=== PATIENT | female | born 1995 | race African-American/Black ===

== ENCOUNTER 2017-05-16 11:53 | Emergency (ER) | payer OTHER | END 2017-05-16 13:55 | disposition home or self-care (01) | LOC: ERS 11:53 | DX: O99.512 Diseases of the respiratory system complicating pregnancy, second trimester (principal); J11.1 Influenza due to unidentified influenza virus with other respiratory manifestations; Z3A.21 21 weeks gestation of pregnancy | CPT/HCPCS: 99283 ==

== ENCOUNTER 2017-05-26 10:59 | Outpatient (CLI) | payer OTHER ==
--- NOTE | 2017-05-26 13:27 | ULT ---
ULTRASOUND OB COMPLETE STANDARD: HISTORY: Z34.90, normal . COMPARISON: None. FINDINGS: The cervix measures 9 cm. Placenta is posterior. Single viable intrauterine with average ultrasound age of 22 weeks 1 day and estimated date of delivery 09/28/17. This is concordant with the clinical age. Estimated weight is 1 pound, 1 ounce. The amniotic fluid index is 9.6 cm. The position is breech. The cervicothoracic lumbar spine, bladder, diaphragm, kidneys, cord insertion, posterior fossa, nose, and lips, cerebellum, and 3-vessel cord are all normal. Ovaries and fallopian tubes are not interrogated on this examination. Biparietal Diameter: 22 weeks 3 days, 5.42 cm. Head Circumference: 21 weeks 6 days, 19.74 cm. Abdominal Circumference: 22 weeks 0 days, 16.94 cm. Femur Length: 22 weeks 2 days, 3.84 cm. IMPRESSION: Single viable intrauterine with average ultrasound age 22 weeks 1 day, estimated date of de livery 09/28/17. The biometry and visualized anatomy are normal. POS: [facility]
== END 2017-05-26 11:00 | disposition home or self-care (01) ==
LOC: ULT 10:59
PROVIDERS: ATTEND Family Medicine
DX: Z34.92 Encounter for supervision of normal pregnancy, unspecified, second trimester (principal); Z3A.22 22 weeks gestation of pregnancy
CPT/HCPCS: 76805

== ENCOUNTER 2017-08-09 14:04 | Day surgery (SDC) | payer OTHER ==
[2017-08-09 14:46] VITALS: BMI 28.3
[2017-08-09 14:48] VITALS: BP 117/58; TEMP 98.7
--- NOTE | 2017-08-09 15:54 | SS ---
DATE OF EVALUATION: 08/09/2017 ATTENDING PHYSICIAN: Kevon Tolbert M.D. EVALUATING PHYSICIAN: Jagdish Flores M.D. CHIEF COMPLAINT: Lower abdominal discomfort. HISTORY OF PRESENT ILLNESS: Ms. Woody is a 22-year-old black G2, P1-0-0-1 with an estimated date of confinement of 09/27/2017, who is now at 33 weeks, who presents complaining of lower abdominal discomfort, pain extending into her legs and tingling in her toes, which she experienced at work today. She denies vaginal bleeding, ruptured membranes. Her care has been with Dr. Tolbert and has been reportedly uncomplicated. PAST OBSTETRICAL HISTORY: Includes a term vaginal delivery reportedly without complications. PAST MEDICAL HISTORY: Unremarkable. PAST SURGICAL HISTORY: None. CURRENT MEDICATIONS: vitamins. ALLERGIES: DEMEROL, which she states gives her hives. SOCIAL HISTORY: She denies tobacco, alcohol, or drug use. REVIEW OF SYSTEMS: Denies nausea, vomiting, fever, or chills. PHYSICAL EXAMINATION: VITAL SIGNS: Stable and she is afebrile. ABDOMEN: Soft, gravid and nontender. There is no guarding or rebound. PELVIC: On pelvic examination, her cervix is fingertip externally, closed internally, 50% effaced and posterior. heart tones are reassuring. There were no decelerations. Good beat, beat variability is seen. There are no regular contractions. There is a small amount of irritability. ASSESSMENT: 1. A 33-week intrauterine . 2. No evidence of labor. 3. Suspected round ligament pain. PLAN: At this time, we will allow the patient go home and she has been given labor precautions in detail. She will continue with modified bed rest at home and check in with Dr. Kevon Tolbert on Friday. She voiced understanding of her discharge instructions and was sent home in good condition. [facility]ITALSebasti[facility]
[2017-08-09] MEDS ORDERED: FLU VACC QS2017-18 36 mo. & older 0.5 ML SYRINGE IM ONE (16:30)
== END 2017-08-09 15:30 | disposition home health service (06) ==
LOC: L&D/OP 14:04
PROVIDERS: ATTEND Family Medicine
DX: O99.89 Other specified diseases and conditions complicating pregnancy, childbirth and the puerperium (principal); R10.30 Lower abdominal pain, unspecified; M79.605 Pain in left leg; M79.604 Pain in right leg; R20.2 Paresthesia of skin; Z3A.33 33 weeks gestation of pregnancy; Z79.899 Other long term (current) drug therapy; Z88.5 Allergy status to narcotic agent

== ENCOUNTER 2017-09-23 21:00 | Inpatient (IN) | payer OTHER ==
--- NOTE | 2017-09-23 19:22 | HP ---
HISTORY OF PRESENT ILLNESS: This is a 22-year-old female G3, P1-0-1-0 at 39 weeks gestation with EDC of 09/27/2017. She does have a history of one prior vaginal delivery, one elective . Her p renatal course has been uncomplicated. She has been having occasional contractions. She is being ad mitted for an elective Cytotec/Pitocin induction. PAST MEDICAL HISTORY: Unremarkable. ALLERGIES: None. PAST SURGICAL HISTORY: Include spontaneous vaginally x1, elective AB x1. FAMILY HISTORY: Unremarkable. SOCIAL HISTORY: She is single. She presently has one daughter with a different father of baby. She works at [employer]. She does not smoke. REVIEW OF SYSTEMS: As above. PHYSICAL EXAMINATION: VITAL SIGNS: Stable, afebrile. HEENT: Clear. HEART/LUNGS: Clear. ABDOMEN: Soft, gravid. EXTREMITIES: With no edema. LABORATORY: One-hour GCT normal. Hematocrit 33, GBS positive. Pap normal, RPR negative, hepatitis B negative, HIV negative, B minus blood type, rubella immune. ASSESSMENT: 1. A 39-week intrauterine . 2. One prior vaginal delivery. 3. GBS positive. PLAN: 1. Routine L&D orders. 2. Routine anesthesia evaluation. 3. GBS prophylaxis. 4. Cytotec/Pitocin induction.
[2017-09-23] MEDS ORDERED: NS w/ Oxytocin 10 units 500 ML IV SCH (21:16)
[2017-09-23] MEDS ORDERED: Zolpidem Tartrate 5 MG TAB PO PRN (21:16)
[2017-09-23] MEDS ORDERED: Misoprostol 200 MCG TAB PR PRN (21:16)
[2017-09-23] MEDS ORDERED: HYDROcodone/Acetaminophen 5/325 mg Tablet PO PRN (21:16)
[2017-09-23] MEDS ORDERED: Ibuprofen 800 MG TAB PO PRN (21:16)
[2017-09-23] MEDS ORDERED: Lidocaine 1% (PF) 30 ML VIAL SC PRN (21:16)
[2017-09-23] MEDS ORDERED: Acetaminophen 500 MG TAB PO PRN (21:16)
[2017-09-23] MEDS ORDERED: Promethazine HCl 25 MG/ML VIAL IM PRN (21:16)
[2017-09-23] MEDS ORDERED: Ondansetron HCl/PF 4 MG/2 ML Vial IVP PRN (21:16)
[2017-09-23] MEDS ORDERED: Penicillin G Potassium 5 MILL.UNITS in Sodium Chloride 0.9% 100 ML IVPB SCH (21:30)
[2017-09-23 21:50] VITALS: BMI 28.6
[2017-09-23] MEDS: Lactated Ringer's 1,000 ML IV SCH (22:20)
[2017-09-23 22:21] LABS: Hemoglobin 9.8 g/dL (12.0-16.0); Mean Corpuscular HGB CONC 33.2 g/dL (32.0-36.0); Mean Corpuscular Hemoglobin 27.2 pg (27.0-31.0); Mean Platelet Volume 7.1 fL (7.4-10.4); Platelet Count 262 thou/uL (130-400); RBC Distribution Width 12.5 % (11.5-14.5); Red Blood Cell (RBC) Count 3.59 mill/uL (4.20-5.40); White Blood Cell (WBC) Count 8.3 thou/uL (4.8-10.8)
[2017-09-23] MEDS: Misoprostol 100 MCG TAB VAG SCH (22:21)
[2017-09-23 22:59] LABS: Syphilis Antibody Nonreactive (Nonreactive); Syphilis Antibody Index 0.14 S/CO (<1.00 Non-Reactive)
[2017-09-23 23:37] LABS: HBSAg Index 0.23 S/CO (0-0.99); Hep B Surf Ag Non-Reactive S/CO (NonReactive)
[2017-09-24] MEDS: Penicillin G 2.5 MILL.units 2.5 MILL.UNITS in Premix Bag 1 BAG IVPB SCH ×4 (02:16→16:42)
[2017-09-24] MEDS: Misoprostol 100 MCG TAB VAG SCH ×4 (02:27→16:42)
[2017-09-24] MEDS ORDERED: DISCONTINUE ALL PREVIOUS NARCOTICS FS SCH (07:45)
[2017-09-24] MEDS ORDERED: Bupivacaine 0.5% 20 ML, fentaNYL Citrate/PF 400 MCG in Sodium Chloride 0.9% 72 ML EPIDURAL SCH (07:45)
[2017-09-24] MEDS: Lactated Ringer's 1,000 ML IV SCH ×2 (07:52→16:42)
[2017-09-24] MEDS ORDERED: Communication Order-Pharmacy FS SCH (08:00)
[2017-09-24] MEDS ORDERED: diphenhydrAMINE 50 MG/ML VIAL IVP PRN (08:00)
[2017-09-24] MEDS ORDERED: Naloxone HCl 0.4 mg/ml Vial IVP PRN ×2 (08:00)
[2017-09-24] MEDS ORDERED: Ondansetron HCl/PF 4 MG/2 ML Vial IVP PRN (08:00)
[2017-09-24] MEDS ORDERED: Promethazine HCl 25 MG/ML VIAL IM PRN (08:00)
[2017-09-24] MEDS ORDERED: Lactated Ringer's 500 ML IV PRN (08:00)
[2017-09-24] MEDS ORDERED: Acetaminophen 325 MG TAB PO PRN (08:00)
[2017-09-24] MEDS ORDERED: Eucerin (Mineral Oil/Petrolatum,White) 30 gm Jar TOP PRN (08:00)
[2017-09-24] MEDS ORDERED: ePHEDrine/0.9% NaCl/PF SYRINGE 50 mg/10 ml SLOW IVP PRN (08:00)
[2017-09-24] MEDS ORDERED: Dextrose 5%-Lactated Ringers 1,000 ML IV SCH (09:00)
[2017-09-24] MEDS: NS / Oxytocin 40 units/1000ml 1,000 ML IV PRN ×2 (11:20→13:49)
[2017-09-24] MEDS ORDERED: Milk Of Magnesia 30 ML UDCUP PO PRN (14:10)
[2017-09-24] MEDS ORDERED: Bisacodyl 10 MG SUPP PR PRN (14:10)
[2017-09-24] MEDS ORDERED: NS / Oxytocin 40 units/1000ml 1,000 ML IV SCH (14:10)
[2017-09-24] MEDS ORDERED: diphenhydrAMINE 25 MG CAP PO PRN (14:10)
[2017-09-24] MEDS ORDERED: HYDROcodone/Acetaminophen 5/325 mg Tablet PO PRN (14:10)
--- NOTE | 2017-09-24 14:25 | OP ---
DATE OF PROCEDURE: 09/24/2017 PREOPERATIVE DIAGNOSIS: Term . POSTOPERATIVE DIAGNOSIS: Term . PROCEDURE: Spontaneous vaginal delivery. ANESTHESIA: Epidural. SURGEON: Kevon Tolbert M.D. PROCEDURE: This is a 22-year-old black female G3, P1, taken to delivery room, complete and pushing. Prepped and draped sterilely. Delivered a baby boy with Apgars 8 at 1 minute, 9 at 5 minutes. Baby did breathe and cry vigorously upon delivery. No lacerations were present. Delivered the placenta, 3-vessel intact. Estimated blood loss was 350 mL. Mother and baby did well.
[2017-09-24] MEDS: Ibuprofen 800 MG TAB PO SCH ×2 (16:41→21:35)
[2017-09-24] MEDS: Ferrous Sulfate 325 MG TAB PO SCH (17:13)
[2017-09-24] MEDS: Docusate Calcium (SURFAK) 240 MG CAP PO SCH (21:35)
[2017-09-25 04:55] VITALS: TEMP 97.9
[2017-09-25] MEDS: Ibuprofen 800 MG TAB PO SCH (05:55)
[2017-09-25 06:01] LABS: Hemoglobin 9.3 g/dL (12.0-16.0); Mean Corpuscular HGB CONC 31.9 g/dL (32.0-36.0); Mean Corpuscular Hemoglobin 26.7 pg (27.0-31.0); Mean Corpuscular Volume 83.7 fl (81.0-99.0); Mean Platelet Volume 7.4 fL (7.4-10.4); Platelet Count 241 thou/uL (130-400); RBC Distribution Width 12.6 % (11.5-14.5); Red Blood Cell (RBC) Count 3.49 mill/uL (4.20-5.40); White Blood Cell (WBC) Count 10.8 thou/uL (4.8-10.8)
[2017-09-25 08:38] VITALS: BP 129/60
--- NOTE | 2017-09-25 08:52 | PDOC.PP ---
Post Progress Note Post Day #: 1 Subjective: Doing well, no c/o, breast and bottle feeding PO intake tolerated: yes Flatus: yes Ambulation: yes Vital Signs (12 hours) Temp Pulse Resp BP 09/25/17 08:00 97.9 F 80 18 09/25/17 07:15 99 F 84 18 129/60 09/25/17 04:28 97.9 F 80 18 101/58 L 09/25/17 00:10 97.8 F 94 18 128/87 Weight Admit Weight 172 lb Weight 172 lb - Physical Examination General: NAD Cardiovascular: no m/r/g, RRR Respiratory: clear to auscultation bilaterally, non-labored breathing Abdominal: + bowel sounds, lochia, no distention, appropriately TTP Psychiatric: A&Ox3, normal affect Result Diagrams: 09/25/17 05:25 Additional Labs: Post Labs Blood Type B NEGATIVE 09/23/17 22:07 Hep Bs Antigen Non-Reactive S/CO (NonReactive) 09/23/17 22:07 (1) Vaginal delivery Code(s): O80 - ENCOUNTER FOR FULL-TERM UNCOMPLICATED DELIVERY Status: Acute - Assessment/Plan PPD #1 Doing well Routine care D/C home this PM
[2017-09-25] MEDS ORDERED: Adacel (T-DAP) 0.5 ML VIAL IM ONE ×2 (09:00→13:00)
[2017-09-25] MEDS ORDERED: Prenatal Vitamin 1 TAB PO SCH (09:00)
[2017-09-25] MEDS: Ferrous Sulfate 325 MG TAB PO SCH (09:14)
[2017-09-25] MEDS: Docusate Calcium (SURFAK) 240 MG CAP PO SCH (09:14)
== END 2017-09-25 13:45 | disposition home or self-care (01) | DRG 775 ==
LOC: L&D 21:12 → 3SW 09-24 15:20
PROVIDERS: ADMIT Family Medicine; ATTEND Family Medicine
PROC: 10E0XZZ Delivery of Products of Conception, External Approach (ICD-10-PCS; principal; 2017-09-24)
PROC: 3E033VJ Introduction of Other Hormone into Peripheral Vein, Percutaneous Approach (ICD-10-PCS; 2017-09-24)
DX: O99.824 Streptococcus B carrier state complicating childbirth (principal); Z37.0 Single live birth; Z3A.39 39 weeks gestation of pregnancy
CPT/HCPCS: 36415; 51702; 76815; 85027; 85461; 86780; 86850; 86900; 86901; 87340; 88307; 90384; 96372; J0595; J2540; J3010; J3490; J7050

== ENCOUNTER 2019-02-11 16:20 | Emergency (ER) | payer OTHER, SELFPAY ==
[2019-02-11] MEDS ORDERED: Ibuprofen 800 MG TAB ONE (18:17)
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
== END 2019-02-11 19:52 | disposition home or self-care (01) ==
LOC: ERS 16:20
DX: S13.4XXA Sprain of ligaments of cervical spine, initial encounter (principal); M25.571 Pain in right ankle and joints of right foot; V89.2XXA Person injured in unspecified motor-vehicle accident, traffic, initial encounter
CPT/HCPCS: 72125

== ENCOUNTER 2020-04-13 22:29 | Emergency (ER) | payer OTHER, SELFPAY ==
[2020-04-13 23:24] LABS: Bacteria/HPF None Seen HPF (None Seen); WBC/HPF 0-3 HPF (0-3)
[2020-04-13 23:26] LABS: Bilirubin Negative (Negative); Blood, Urine Negative (Negative); Clarity Clear (Clear); Glucose, Urine (Dipstick) Normal (Negative); Ketone, Urine Negative (Negative); Leukocyte Negative Leu/uL (Negative); Nitrite Negative (Negative); Pregnancy Test - Urine (BHCG) POSITIVE (Negative); Pregu Control Background? CLEAR/WHITE (CLR/WHITE); Pregu Control Bar Appear? YES (CONTROL BAR); Protein, Urine (Dipstick) Negative (Neg-Trace); Specific Gravity 1.013 (1.002-1.036); Specific Gravity, Urine 1.013 (1.002-1.036); Urobilinogen Normal mg/dL (Less than 2)
[2020-04-13] MEDS ORDERED: HYDROcodone/Acetaminophen 5/325 mg Tablet ONE (23:58)
[2020-04-14 00:14] LABS: #Basophils 0.1 thou/uL (0.0-0.2); #Eosinphils 0.3 thou/uL (0.0-0.7); #Lymphocytes 2.6 thou/uL (1.20-3.40); #Monocytes 0.6 thou/uL (0.11-0.59); #Neutrophils 4.4 thou/uL (1.40-6.50); %Basophils 1.1 % (0.0-1.0); %Eosinophils 3.8 % (0.0-10.0); %Lymphocytes 33.1 % (21.0-51.0); %Monocytes 7.4 % (0.0-10.0); %Neutrophils 54.6 % (42.0-75.0); Hemoglobin 11.7 g/dL (12.0-16.0); Mean Corpuscular HGB CONC 32.7 g/dL (32.0-36.0); Mean Corpuscular Hemoglobin 28.4 pg (27.0-31.0); Mean Corpuscular Volume 86.7 fL (78.0-98.0); Mean Platelet Volume 7.5 fL (7.4-10.4); Platelet Count 287 thou/uL (130-400); RBC Distribution Width 11.6 % (11.5-14.5); Red Blood Cell (RBC) Count 4.12 mill/uL (4.20-5.40)
[2020-04-14 01:14] LABS: ALT (SGPT) 11 U/L (8-55); AST (SGOT) 13 U/L (5-34); Albumin 4.1 g/dL (3.5-5.0); Alkaline Phosphatase 74 U/L (40-110); Anion Gap 14 mmol/L (10-20); BUN (Urea Nitrogen) 9 mg/dL (7.0-18.7); Bilirubin, Total 0.5 mg/dL (0.2-1.2); Calc. Creatinine Clearance 0 mL/min (70-130); Carbon Dioxide 21 mmol/L (22-29); Chloride 105 mmol/L (98-107); Estimated GFR-MDRD Greater than 90; Globulin 3.5 g/dL (2.4-3.5); Glucose 82 mg/dL (70-105); Potassium 3.8 mmol/L (3.5-5.1); Protein, Total 7.6 g/dL (6.0-8.3); Sodium 136 mmol/L (136-145)
--- NOTE | 2020-04-14 01:21 | PRG ---
DATE OF SERVICE: TIME: 55 PHONE INFORMAL CONSULT WITH ED PROVIDER Patient not seen by me. DX: , NOS This is a brief ER phone consultation with the ER provider (Nacho). In brief, I just received a phone call and I discussed the case with Nacho on Tim Woody, who is the patient of question. This is a G3, P2, who came in with some possible lower abdominal cramping, but nothing that was emergent. By Nacho's assessment, she is in no acute distress and is otherwise stable. Ultrasound was performed because she had a positive test with a beta-hCG of 1400. Ultrasound showed nothing in the uterus and a possible "dilated tube," but no distinct evidence of ectopic. Her ovary did have what looked like an ovarian cyst. I discussed with Nacho that as the patient's hematocrit was 35.7, pulse is 90, blood pressure is 115/84, and as she is clinically stable by their assessment, because we are under the limit of detection by the ACOG (now 3500), with no definitive evidence of an ectopic, I feel uncomfortable giving this patient methotrexate and then later finding out she has possibly an intrauterine . As she is clinically stable, I also do not feel that she needs surgery at this time. I did discuss the case with Nacho in detail. We both felt comfortable having her followup in 48 hours with her provider, on Friday, for repeat assessment. For right now because the diagnosis is still russell, her diagnosis is of unknown location below the limit of detection. For now, we will just follow her up and she will be given strict warnings that should she have increasing symptoms, she needs to return back, but as of right now, there is no indication for surgical intervention or methotrexate at this time. Job ID: [id number] [facility]
--- NOTE | 2020-04-14 07:55 | ULT ---
PRELIMINARY REPORT/[facility]/EMERGENCY AFTER HOURS PROCEDURE: Receipt of this report by the clinical staff was confirmed with Sagrario Padilla RN by Blanca Holt Apr 14, 2020 00:59:00 GLUE CLAMP OPERATOR. Addendum electronically signed by Blanca Holt on April 14 1:01:06 AM GLUE CLAMP OPERATOR EXAM: US pelvis, complete CLINICAL HISTORY: RLQ pain x 6 days, positive test, quantitative hCG 1437. LMP 03/25/2020 TECHNIQUE: Transvaginal and transabdominal pelvic ultrasound with image documentation. COMPARISONS: None provided. FINDINGS: UTERUS: Normal appearance of the uterine myometrium. Uterus measures 9.3 x 4.6 x 5.1 cm. No intrauter ine gestational sac visualized. OVARIES: Right ovary measures 4.5 x 3.8 x 3.4 cm. There is a possible dilated right fallopian tube. C omplex, hypoechoic lesion of the right ovary measuring 3.5 x 3.2 x 4.9 cm. Left ovary measures 2.4 x 1.2 x 2.7 cm. Normal color Doppler flow. FREE FLUID: Small amount of pelvic free fluid adjacent to the right adnexa and in the posterior cul-d e-sac. IMPRESSION: 1. Questionable dilated fallopian tube and right ovarian complex hypoechoic lesion. While the complex hypoechoic lesion could represent a hemorrhagic cyst, the suggestion of dilated fallopian tube and s mall amount of adjacent pelvic free fluid raises the suspicion for ectopic . 2. No visualized intrauterine . ELECTRONICALLY SIGNED BY: Tk Montgomery MD Apr 14, 2020 12:52:43 AM GLUE CLAMP OPERATOR FINAL REPORT EMERGENT AFTER HOURS TRANSABDOMINAL AND TRANSVAGINAL PELVIC ULTRASOUND: FINDINGS/IMPRESSION: I agree with the findings and impression given in the preliminary report per [facility] physici an. There is a paucity of dilated right fallopian tube with adjacent free fluid in the right adnexal region. An ectopic cannot be entirely excluded. Correlate with HCG level. POS: [facility]
== END 2020-04-14 02:24 | disposition home or self-care (01) ==
LOC: ERS 22:29
DX: O99.891 Other specified diseases and conditions complicating pregnancy (principal); R10.2 Pelvic and perineal pain; Z3A.01 Less than 8 weeks gestation of pregnancy
CPT/HCPCS: 36415; 76856; 80053; 81003; 81025; 84702; 85025; 86900; 86901

== ENCOUNTER 2020-04-16 21:46 | Observation (INO) | payer BC, OTHER ==
--- NOTE | 2020-04-16 22:53 | ULT ---
TRANSVAGINAL PELVIC ULTRASOUND: Date: 04/16/2020 PROVIDED CLINICAL HISTORY: Pelvic pain. FINDINGS: Comparison made with study dated 04/14/2020. The uterus measures about 9.2 x 4.7 x 5.3 cm and demonstrates a normal sonographic appearance. There is no evidence for an intrauterine gestational sac. There is a complex cystic structure compatible with hemorrhagic physiologic cyst involving the right ovary. There is a separate, solid appearing right adnexal mass measuring at least 2.8 cm, similar to prior. The left ovary appears sonographically unremarkable. Color Doppler and spectral analysis of the ovarian waveforms demonstrates flow bilaterally. There is minimal mildly complex fluid present within the pelvic cul-de-sac. IMPRESSION: 1. No evidence for an intrauterine gestational sac. 2. Right adnexal mass, which could reflect an ectopic in the setting of increasing beta HC G value. 3. Minimal complex free pelvic fluid, with blood products not excluded. POS: [facility]
[2020-04-16 22:54] LABS: #Basophils 0.1 thou/uL (0.0-0.2); #Eosinphils 0.3 thou/uL (0.0-0.7); #Lymphocytes 2.3 thou/uL (1.20-3.40); #Monocytes 0.6 thou/uL (0.11-0.59); #Neutrophils 4.3 thou/uL (1.40-6.50); %Basophils 1.3 % (0.0-1.0); %Eosinophils 3.6 % (0.0-10.0); %Lymphocytes 30.8 % (21.0-51.0); %Monocytes 8.1 % (0.0-10.0); %Neutrophils 56.2 % (42.0-75.0); Mean Corpuscular HGB CONC 32.7 g/dL (32.0-36.0); Mean Corpuscular Hemoglobin 28.5 pg (27.0-31.0); Mean Corpuscular Volume 86.9 fL (78.0-98.0); Mean Platelet Volume 7.5 fL (7.4-10.4); Platelet Count 342 thou/uL (130-400); RBC Distribution Width 11.5 % (11.5-14.5); Red Blood Cell (RBC) Count 4.21 mill/uL (4.20-5.40); White Blood Cell (WBC) Count 7.6 thou/uL (4.8-10.8)
[2020-04-17] MEDS ORDERED: Acetaminophen 500 MG TAB ONE (00:10)
[2020-04-17 00:19] LABS: PTT 31.2 sec (22.9-36.1); Prothrombin Time 13.8 sec (12.0-14.7)
[2020-04-17 00:34] LABS: ALT (SGPT) 12 U/L (8-55); AST (SGOT) 15 U/L (5-34); Albumin 4.1 g/dL (3.5-5.0); Alkaline Phosphatase 75 U/L (40-110); Anion Gap 13 mmol/L (10-20); BUN (Urea Nitrogen) 9 mg/dL (7.0-18.7); Bilirubin, Total 0.3 mg/dL (0.2-1.2); Calc. Creatinine Clearance 0 mL/min (70-130); Calcium 9.3 mg/dL (7.8-10.44); Carbon Dioxide 24 mmol/L (22-29); Chloride 105 mmol/L (98-107); Estimated GFR-MDRD Greater than 90; Globulin 3.6 g/dL (2.4-3.5); Glucose 84 mg/dL (70-105); Potassium 3.8 mmol/L (3.5-5.1); Protein, Total 7.7 g/dL (6.0-8.3); Sodium 138 mmol/L (136-145)
[2020-04-17] MEDS ORDERED: Ondansetron ODT 4 MG TAB SL PRN (02:15)
[2020-04-17] MEDS ORDERED: Ondansetron PF 4 MG/2 ML Vial IVP PRN (02:15)
[2020-04-17] MEDS ORDERED: D5 1/2 NS w/20 mEq KCL 1,000 ML IV SCH (02:15)
[2020-04-17 04:25] LABS: SARS-CoV-2 MS2 Positive; SARS-CoV-2 N Gene Negative; SARS-CoV-2 S Gene Negative; SARS-CoV-2 by NAA Not Detected (NotDetected); SARS-CoV-2 orf1ab Negative
[2020-04-17] MEDS ORDERED: CEFAZOLIN 2 GM in Premix Bag 1 BAG IVPB SCH (07:45)
--- NOTE | 2020-04-17 07:46 | HP ---
TIME OF SERVICE: 0600 hours. REASON FOR ADMISSION: Right ectopic . HISTORY OF PRESENT ILLNESS: Ms. Woody is a 24-year-old, 3, para 2, who was first seen on April 13. She was noted to have a beta-hCG of approximately 1400. She was noted to have a solid right adnexal mass, apart from the ovary measuring 4 to 5 cm in greatest diameter with no free fluid and a normal hematocrit at that time. It was felt to likely be ectopic and she was brought back for serial beta-hCG's and followup. She re-presented on the evening of 04/16 and was noted to have a beta-hCG that increased to approximately 1700. Ultrasound is consistent with a 5 to 6 cm greatest diameter solid mass apart from the ovary, most consistent with an ectopic . DRAFTER HEATING AND VENTILATING HISTORY: x2 with Dr. Tolbert. Blood type is B negative. Denies history of STDs. PAST MEDICAL HISTORY: None. PAST SURGICAL HISTORY: None. ALLERGIES: DENIES. MEDICATIONS: None. SOCIAL HISTORY: Denies tobacco, alcohol, or IV drug abuse. FAMILY HISTORY: Noncontributory. REVIEW OF SYSTEMS: Noncontributory. PHYSICAL EXAMINATION: GENERAL: Black female, resting comfortably. VITAL SIGNS: Temperature 98.3, pulse 69, respirations 18, and blood pressure 145/77. HEENT: Within normal limits. LUNGS: Clear to auscultation bilaterally. HEART: Regular rate and rhythm. ABDOMEN: Soft, nondistended. Mild discomfort to deep palpation on the right. : Vulva without lesions. Vaginal exam was deferred. Emergency room physician exam reported no bleeding and a closed cervix. EXTREMITIES: Without clubbing, cyanosis, or edema. LABORATORY DATA: Beta-hCG 1778. SARS COVID-19 negative. LFTs within normal limits. Base met within normal limits. PT and PTT within normal limits. Hematocrit 37%, white count 7.6, and platelet count 342. IMAGING DATA: Ultrasound reveals an empty uterus. No gestational sac. Hemorrhagic cyst of the right ovary and a separate solid adnexal mass in the right. The ultrasound report last night reports at least 2.8 cm in diameter. Ultrasound on the reported a complex hypoechoic lesion measuring 3.5 x 3.2 x 4.9 cm. Upon my inspection of the pictures, it really seems to be more of a solid complex lesion consistent with ectopic and it does measure approximately 5 cm in greatest diameter on both studies. There is no significant free fluid noted. IMPRESSION: Slowly rising beta-hCG with complex mass of right adnexa, most consistent with ectopic . PLAN: The patient has been n.p.o. since prior to midnight. We discussed her options including methotrexate at 50 mg/m2 with serial beta-hCG's and followups at [facility] [place] versus laparoscopic right salpingectomy. The patient is undecided at this time, but is leaning toward surgery. We discussed the advantages and disadvantages of each approach. I explained the positive predictive value for success of methotrexate associated with low beta-hCG and lack of active bleeding, but the decreased success rate with increased ectopic size. We also discussed the risks and benefits of surgery including bleeding, infection, removal of fallopian tube, infertility versus its advantages of definitive diagnosis and immediate therapeutic benefit and avoidance of office and laboratory followup. The patient is going to consider these factors with her mother and make a decision. The patient has been posted for later this morning on the OR schedule for laparoscopic right salpingectomy. Dr. Chan Espinoza will be taking over for myself at 8 o'clock. He is OB hospitalist and we will follow up with the patient on her final decision. Job ID: [id number]
[2020-04-17] MEDS ORDERED: Fentanyl 250 MCG/5 ML VIAL ONE (08:51)
[2020-04-17] MEDS ORDERED: Lidocaine 1% w/Epinephrine 1:100K 20 ML VIAL ONE (08:54)
[2020-04-17] MEDS ORDERED: Bupivacaine PF 0.5% 30 ML VIAL ONE (08:54)
--- NOTE | 2020-04-17 09:22 | PDOC.EVN ---
Event Note - Event Note Event Note: Pt is a 24yo female with suspected rt sided ectopic . She had been counselled her medical and surgical options. After seeking community health counselor from family or friends pt has chosen to move forward with surgical management. We plan on a diagnostic laparoscopy with rt salpingectomy and other procedures as indicated. PT has expressed understanding that risks included bleeding, infection, damage to bowel or bladder sterility, and alternations to hormonal function and desires to proceed.
[2020-04-17] MEDS ORDERED: Midazolam HCl 2 mg/2 ml Vial ONE (09:37)
[2020-04-17] MEDS ORDERED: Fentanyl 100 MCG/2 ML VIAL ONE ×2 (11:56→12:37)
[2020-04-17 13:35] VITALS: BP 92/62; TEMP 97.6
[2020-04-17] MEDS ORDERED: Ondansetron PF 4 MG/2 ML Vial IVP SCH (13:45)
[2020-04-17] MEDS ORDERED: Acetaminophen 500 MG TAB PO SCH (13:45)
[2020-04-17] MEDS ORDERED: Morphine 4 MG/ML VIAL SLOW IVP SCH (13:45)
[2020-04-17] MEDS ORDERED: traMADol HCl 50 MG TAB PO SCH (13:45)
[2020-04-17] MEDS ORDERED: PHENYLEPHRINE-NS 100 MCG/ML 10 ML SYRINGE ONE (14:34)
[2020-04-17] MEDS ORDERED: Rocuronium Bromide 10 MG/ML (10ML VIAL) ONE (14:34)
[2020-04-17] MEDS ORDERED: PROPOFOL 200 MG/20 ML VIAL ONE (14:34)
[2020-04-17] MEDS ORDERED: Dexamethasone 20 MG/5 ML VIAL ONE (14:34)
[2020-04-17] MEDS ORDERED: Ketorolac Tromethamine 30 MG/ML VIAL ONE (14:34)
[2020-04-17] MEDS ORDERED: Ondansetron PF 4 MG/2 ML Vial ONE (14:34)
[2020-04-17] MEDS ORDERED: Lidocaine 1% PF 5 ML VIAL ONE (14:34)
[2020-04-17] MEDS ORDERED: Glycopyrrolate 0.2 MG/ML 5 ML SYRINGE ONE (14:34)
[2020-04-17] MEDS ORDERED: FLU VACC QS2020-21(6MOS UP)/PF 60 MCG/0.5 ML SYRINGE IM ONE (21:00)
--- NOTE | 2020-04-18 02:21 | OP ---
DATE OF PROCEDURE: 04/17/2020 PREOPERATIVE DIAGNOSIS: Ectopic . POSTOPERATIVE DIAGNOSIS: Ruptured ectopic from the right tube. PROCEDURE: Diagnostic laparoscopy with right partial salpingectomy and evacuation of products of conception. COUNTS: Correct. COMPLICATIONS: None. CONDITION: Stable to recovery. SPECIMENS: Right tubal segment and products of conception. FINDINGS: Filmy adhesions between the colon and the uterus, and the colon and the right tube. The ruptured ectopic appears to have avulsed off most of the fimbrial edge into the tube and at the time of our evaluation was all adhesed to the lower anterior pelvis adjacent to the bladder. DESCRIPTION OF PROCEDURE: Ms. Woody is a 24-year-old G1 female with a diagnosed as likely ectopic. After being counseled to the risks and benefits of medical versus surgical management, the patient has opted for surgical management. After reviewing the risks including risk of bleeding, infection, damage to bowel or bladder, blood vessels, sterility, hormonal dysfunction, the patient has considered these risks and has desired to proceed. After providing written informed consent, patient was placed in dorsal lithotomy position in El stirrups after being put to sleep and intubated. A single- tooth tenaculum and the uterine manipulator were placed vaginally with the aid of an operative speculum. Anteriorly a 5 mm skin incision was made in the base of the umbilicus. Suprapubically there was a 10 to 11 mm incision made and carried down to the level of the fascia and a Veress needle was introduced into the base of the umbilicus with an entry pressure of 4 mmHg. The abdomen was then inflated to 15 mmHg. A 5 mm trocar was then introduced into the umbilical incision and proper placement was confirmed by laparoscope. Upon entry into the abdomen, the patient was noted to have some blood within the pelvis and also was noted to have the sigmoid colon adhesed to the anterior portion of the uterus and also adhesed to the right tube. Anteriorly, at the level of the bladder, there appears to be the ectopic ruptured from the end of the tube and adhesed to the anterior abdominal wall. Bluntly these adhesions were dissected down. Taking the bowel down from the uterus and removing it from the end of the tube, the ruptured end of the tube appeared to be missing about 70% to 80% of the fimbria which appeared to be avulsed and was bleeding, not profusely, but persistently. What I believed to be the products of conception were then bluntly dissected off the anterior portion of the abdomen and was removed with an 11 mm or 5 mm EndoCatch bag. The distal portion of the right tube was ligated and transected for hemostasis. Once this was removed, inspection of the abdomen noted good hemostasis at the surgical site. The pelvis was irrigated. Appendix and liver looked healthy. No other evidence of intraabdominal disease. The suprapubic fascial incision was closed with o-vicryl interrupted suture under direct visualization. The abdomen was then deflated and skin incisions were closed with 4-0 vicryl. Attention was placed vaginally. The uterine manipulator and single tooth tenaculum were removed. The puncture site was made hemostatic with pressure. Procedure was completed. Pt was extubated and taken to recovery in stable condition. Job ID: [id number] [facility]
--- NOTE | 2020-04-18 08:09 | DIS ---
DATE OF ADMISSION: 04/17/2020 DATE OF DISCHARGE: 04/17/2020 ADMITTING DIAGNOSIS: Ectopic . DISCHARGE DIAGNOSIS: Ectopic , ruptured. PROCEDURE: Diagnostic laparoscopy with right partial salpingectomy. CONSULTATIONS: None. HOSPITAL COURSE: The patient is a 24-year-old female who presented to the emergency room for repeat followup on beta-hCG. She was noted and concerns of possible ectopic . She was noted to have an adnexal mass of 5 to 6 cm and inappropriate rise in her beta-hCG from 1400 to 1700. The patient was counseled to the options of medical versus surgical management. The patient was undecided and was at that time not agreeable to surgery. However, after considering her options, the patient did ultimately decide to proceed with surgery, had a diagnostic laparoscopy demonstrating a ruptured ectopic with what appears to be the whole fimbrial end of the right tube avulsed off with the adhesed to the anterior abdominal wall at the level of the bladder. For complete details, please refer to the operative note. In short, the adhesions were taken down, the right end of the tube was then ligated and transected off for hemostasis, and the presumed products of conception were removed. The patient was discharged home later that day without any difficulties. Vital signs at the time of discharge, blood pressure is 92/62, respiratory rate of 18, saturating 99% on room air, temperature 97.6. In general, she appears to be in no acute distress. She is alert, oriented, cooperative, and pleasant to interact with. Incisions were clean, dry, and intact. The patient is discharged home with ibuprofen and tramadol, and instructions to follow up in 1 to 2 weeks for postoperative care. She was provided a written excuse for work in the next week and indicated should the patient desire to stay as if she is still requiring narcotic use that she needed to follow up sooner to be re-evaluated within the two weeks' deysi. Job ID: [id number]
== END 2020-04-17 15:50 | disposition home or self-care (01) ==
LOC: ERS 21:46 → 3SW 04-17 00:28
PROVIDERS: ADMIT Obstetrics & Gynecology; ATTEND Obstetrics & Gynecology
PROC: 10T24ZZ Resection of Products of Conception, Ectopic, Percutaneous Endoscopic Approach (ICD-10-PCS; principal; 2020-04-17)
PROC: 0UT54ZZ Resection of Right Fallopian Tube, Percutaneous Endoscopic Approach (ICD-10-PCS; 2020-04-17)
DX: O00.101 Right tubal pregnancy without intrauterine pregnancy (principal); Z88.5 Allergy status to narcotic agent; Z20.828 Contact with and (suspected) exposure to other viral communicable diseases
CPT/HCPCS: 36415; 76856; 80053; 84702; 85025; 85610; 85730; 87635; 88305; 96374; G0378; J0690; J1100; J1885; J2250; J2405; J2704; J3010; J3480; S0020; U0003